=== PATIENT | female | born 1940 | race Two or more races ===

== ENCOUNTER 2024-12-05 03:51 | Inpatient (IN) | payer MEDICARE, BC ==
[2024-12-05] VITALS (10 sets, daily range): BP systolic 102–143; BP diastolic 45–73; PULSE 80–94; RESP 10–18; TEMP 97.4–97.8; O2SAT 92–99
[~2024-12-05] VITALS: Ht 157.5 cm; Wt 74.6 kg
--- NOTE | 2024-12-05 05:04 | ED.PDOC ---
Musculoskeletal HPI Comments 84 year old female presents to the ED via EMS with a chief complaint of RT hip pain s/p fall onset yesterday. Patient was transferred from [facility]. Patient has a RT hip fracture, needs surgery, needed security supervisor to clear her for surgery. Patient states she tripped, fell and landed on RT side. PMHx osteoporosis. Denies LOC, headache, dizziness,nausea, vomiting, diarrhea, chest pain, shortness of breath. No other symptoms or modifying factors present at this time. Chief Complaint: Lower Extremity Time Seen by MD: 04:50 Reviewed Notes: Medications, Allergies Allergies: Coded Allergies: Codeine (Verified Allergy, Unknown, 12/05/24) Information Source: Patient, Emergency Med Personnel Mode of Arrival: EMS Location: Right Extremity Location: Hip Timing: Days Prehospital treatment: None Severity: Moderate Able to Move Extremity: No Bear Weight: No Pain: Moderate Mechanism: Spontaneous Circumstances: Fall Onset of Symptoms: After Trauma Symptoms: Swelling, Pain DVT Risk Factors: NONE Associated signs and symptoms: Hip pain Past Medical History Past Medical History (Other): osteoperosis Surgical History: Pacemaker [employer]UM CONTINUOUS PROCESS History: No Pertinent [employer]UM CONTINUOUS PROCESS History Family History Family History: Reviewed,noncontributory to illness, No family hx of Cancer, No family hx of DM, No family hx of Heart stanley, No family hx of HTN, No family hx ofKidney stanley, No family hx of Liver stanley, No family hx of Lung stanley, No family hx of Stroke Social History Smoker: Non-Smoker Alcohol: Denies ETOH Use Drugs: Denies Drug Use Lives In: Home Constitutional: denies: chills, diaphoresis, fatigue, fever, malaise, sweats, weakness, others EENTM: denies: blurred vision, double vision, ear bleeding, ear discharge, ear drainage, ear pain, ear ringing, eye pain, eye redness, hearing loss, mouth pain, mouth swelling, nasal discharge, nose bleeding, nose congestion, nose pain, photophobia, tearing, throat pain, throat swelling, voice changes, others Respiratory: denies: cough, hemoptysis, orthopnea, SOB at rest, shortness of breath, SOB with excertion, stridor, wheezing, others Cardiovascular: denies: chest pain, dizzy spells, diaphoresis, Dyspnea on exertion, edema, irregular heart beat, left arm pain, lightheadedness, palpitations, PND, syncope, others Gastrointestinal: denies: abdomen distended, abdominal pain, blood streaked bowels, constipated, diarrhea, dysphagia, difficulty swallowing, hematemesis, melena, nausea, poor appetite, poor fluid intake, rectal bleeding, rectal pain, vomiting, others Genitourinary: denies: abnormal vagina bleeding, burning, dyspareunia, dysuria, flank pain, frequency, hematuria, incontinence, pain, , vagina discharge, urgency, others Neurological: denies: dizziness, fainting, headache, left sided numbness, left sided weakness, numbness, paresthesia, pre-existing deficit, right sided numbness, right sided weakness, seizure, speech problems, tingling, tremors, weakness, others Musculoskeletal: reports: others (RT hip pain); denies: back pain, gout, joint pain, joint swelling, muscle pain, muscle stiffness, neck pain Integumetry: denies: bruises, change in color, change in hair/nails, dryness, laceration, lesions, lumps, rash, wounds, others Allergic/Immunocompromised: denies: Difficulty Healing, Frequent Infections, Hives, Itching, others Hematologic/Lymphatic: denies: anemia, blood clots, easy bleeding, easy bruisin g, swollen glands, others Endocrine: denies: excessive hunger, excessive sweating, excessive thirst, excessive urination, flushing, intolerance to cold, intolerance to heat, unexplained weight gain, unexplained weight loss, others Psychiatric: denies: anxiety, bipolar disorder, depression, hopeless, panic disorder, schizophrenia, sleepless, suicidal, others All Other Systems: Reviewed and Negative Physical Exam General Appearance: No Apparent Distress, Normal HEENT: Normal ENT Inspection, Pharynx Normal, TMs Normal Neck: Full Range of Motion, Non-Tender, Normal, Normal Inspection Respiratory: Chest Non-Tender, Lungs Clear, No Accessory Muscle Use, No Respiratory Distress, Normal Breath Sounds Cardiovascular: No Edema, No JVD, No Murmur, No Gallop, Normal Peripheral Pulses, Regular Rate/Rhythm Breast Exam: Deferred Gastrointestinal: No Organomegaly, Non Tender, No Pulsatile Mass, Normal Bowel Sounds, Soft Genitalia: Deferred Pelvic: Deferred Rectal: Deferred Extremities: No calf tenderness, Normal capillary refill, Normal inspection, Normal range of motion, Non-tender, No pedal edema Musculoskeletal : Apperance: Normal Neurologic: Alert, 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 Was a procedure done?: No Differential Diagnosis EXT Differential Diagnosis: Compartment Syndrome, Fracture, Sprain, Dislocation, Laceration, DJD, Contusion, Other X-Ray, Labs, Meds, VS Vital Signs Date Time Temp Pulse Resp B/P (MAP) Pulse Ox O2 Delivery O2 Flow Rate FiO2 12/05/24 03:53 97.6 90 18 124/69 (87) 94 97.6 Lab Test 12/05/24 05:28 Range/Units White Blood Count Pending Red Blood Count Pending Hemoglobin Pending Hematocrit Pending Mean Corpuscular Volume Pending Mean Corpuscular Hemoglobin Pending Mean Corpuscular Hemoglobin Concent Pending Red Cell Distribution Width Pending Platelet Count Pending Mean Platelet Volume Pending Neutrophils (%) (Auto) Pending Lymphocytes (%) (Auto) Pending Monocytes (%) (Auto) Pending Basophils (%) (Auto) Pending Neutrophils # (Auto) Pending Lymphocytes # (Auto) Pending Monocytes # (Auto) Pending Prothrombin Time Pending Prothrombin Time INR Pending Activated Partial Thromboplast Time Pending Sodium Level Pending Potassium Level Pending Chloride Level Pending Carbon Dioxide Level Pending Anion Gap Pending Blood Urea Nitrogen Pending Creatinine Pending Glomerular Filtration Rate Calc Pending BUN/Creatinine Ratio Pending Serum Glucose Pending Calcium Level Pending Total Bilirubin Pending Aspartate Amino Transferase (AST) Pending Alanine Aminotransferase (ALT) Pending Alkaline Phosphatase Pending Total Protein Pending Albumin Pending Images Reviewed?: Images reviewed and evaluated by me Time of 1ST Reevaluation: 05:20 Reevaluation 1ST: Unchanged Patient Education/Counseling: Diagnosis, Treatment, Prognosis Family Education/Counseling: No Family Present Departure 1 Departure Time of Disposition: 05:52 Impression: Primary Impression: Closed right hip fracture Disposition: ADMITTED INPATIENT Condition: Guarded Discharged With: Self Comments Right Hip Pain After Fall Chief Complaint: Right hip pain after fall History of Present Illness: 84-year-old female presents to the Emergency Department with severe right hip pain following a ground-level trip and fall [facility] [employer] one day ago. Patient has been unable to bear weight since the fall. Initial X-rays at an outside facility suggested a right hip fracture. The patient was transferred to our facility for medical clearance by cardiology prior to orthopedic evaluation for possible hip surgery. On reevaluation, patient reports that her pain is currently controlled. 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 Problem List: 1. Right intertrochanteric hip fracture 2. Fall risk 3. Need for pre-operative cardiac clearance Differential Diagnosis: 1. Hip fracture 2. Hip contusion 3. Pelvic fracture 4. Soft tissue injury ED Course: Patient evaluated in ED, pre-operative workup initiated including labs, chest X-ray, and EKG. Orthopedic consultation and cardiology clearance pending. Pain adequately controlled. Assessment and Plan: 1. Right Intertrochanteric Hip Fracture: - Admission to orthopedic service pending - Awaiting cardiology clearance for surgery - Continue pain management as needed - DVT prophylaxis to be initiated per admitting team 2. Pre-operative Clearance: - Cardiology consultation requested - Pre-operative labs, chest X-ray, and EKG completed 3. Disposition: - Admit to hospital for surgical management - Orthopedic consultation Billing Information: ICD-10: S72.141A - Displaced intertrochanteric fracture of right femur, initial encounter for closed fracture ICD-10: W01.0XXA - Fall on same level from slipping, tripping and stumbling, initial encounter ICD-10: Z75.5 - [facility] relief care Critical Care Note Critical Care Time?: No Stability Stability form required: No Heart Score Heart Score: Heart Score Response (Comments) Value History N/A 0 EKG N/A 0 Age N/A 0 Risk Factors N/A 0 Troponin N/A 0 Total 0 I personally scribed for RADHA MURRAY MD ([email or web address]) on 12/05/24 at 05:04. Electronically submitted by Estephania Funez ([email or web address]). RADHA MURRAY MD Dec 05, 2024 05:04
[2024-12-05 06:12] LABS: Basophils # (auto) 0 10 ^3/uL (0-0.2); Basophils % (auto) 0.2 % (0.0-2.0); Eosinophils # (auto) 0 10 ^3/uL (0-0.8); Hemoglobin 13.9 g/dL (12.2-16.2); Lymphocytes # (auto) 1.1 10 ^3/uL (0.4-5.4); Lymphocytes % (auto) 9.3 % (10.0-50.0); Mean Corpuscular Hemoglobin 30.5 pg (28.0-32.0); Mean Corpuscular Volume 89.7 fL (80.0-100.0); Monocytes # (auto) 0.4 10 ^3/uL (0-1.3); Monocytes % (auto) 3.6 % (0.0-12.0); Neutrophils % (auto) 86.9 % (37.0-80.0); Nucleated Red Blood Cells % 0.1 %; Platelet Count (auto) 222 10^3/uL (140-450); Red Blood Cells 4.58 10^6/uL (4.0-5.20); Red Cell Distribution Width 13.4 % (11.8-14.3); White Blood Cell 11.5 10^3/uL (4.4-10.8)
[2024-12-05] MEDS ORDERED: ACETAMINOPHEN 325 MG TAB PO PRN (06:15)
--- NOTE | 2024-12-05 06:21 | DVH ---
CHEST RADIOGRAPH Indication: pre-op Technique: Single frontal view of the chest was obtained Comparison: None FINDINGS: Lines and Tubes: Dual-chamber pacemaker. Lungs: Bilateral interstitial prominence. No focal airspace disease. Pleura: No effusion. No pneumothorax. Cardiomediastinal contours: Cardiomegaly. Bones: Unremarkable IMPRESSION: 1. Pulmonary venous congestion. 2. Cardiomegaly.
--- NOTE | 2024-12-05 06:22 | DVH ---
PROCEDURE: Right hip radiographs. INDICATION: pain , fracture TECHNIQUE: Frontal views of the right hip were obtained. COMPARISON: Radiographs of the pelvis 12/04/2024. FINDINGS: Acute intertrochanteric right femoral neck fracture is noted. No dislocation. IMPRESSION: 1. Acute intertrochanteric right femoral neck fracture.
--- NOTE | 2024-12-05 06:45 | DVHHP2 ---
History of Present Illness Reason for Visit: Acute intertrochanteric right femoral neck fracture status post fall History of Present Illness Lesly Singh is a 84-year-old female with past medical history of osteoporosis, bilateral neuromas, right cataract surgery, and pacemaker placed on February 26, 2018 who presents to the ED with an acute intertrochanteric right femoral neck fracture status post fall. Patient reports that yesterday she was [place] [employer] when she had placed her belongings on a counter opened the door that was facing towards her, tripped and fell and landed on her right side. Patient reports that she does not use any DME and states that this is the 1st time falling. She states that she is extremely healthy and does not take any medications. Patient also reports that she lives alone. Patient denies any chest pain, shortness of breath, fever, chills, lightheadedness, weakness, dizziness, chest pain, shortness of breath, abdominal pain, nausea, vomiting, or diarrhea. Past Medical History Osteoporosis Bilateral neuromas Past Surgical History: Cataract Removal, Other (Pacemaker placed on February 26, 2018) Family History: Other (Both parents with heart disease) Smoke: No ALCOHOL: none Drugs: None Lives: Alone Domestic Violence: Neg Review of Systems Musculoskeletal: other (Right hip pain) Allergies: Coded Allergies: Codeine (Verified Allergy, Unknown, 12/05/24) Exam Vital Signs Vital Signs Date Time Temp Pulse Resp B/P (MAP) Pulse Ox O2 Delivery O2 Flow Rate FiO2 12/05/24 04:00 83 13 94 Room Air* 0 21 12/05/24 04:00 98.4 112/57 (75) 98.4 General Appearance: Alert, Oriented X3, Cooperative, No acute distress HEENT: Atraumatic, PERRLA, EOMI, Mucous membr. moist/pink Respiratory: Normal air movement Cardiovascular: Regular rate, Normal S1, Normal S2, No murmurs Abdominal: Normal bowel sounds, Soft, No tenderness, No hepatospenomegaly, No masses Extremities: No clubbing, No cyanosis, No edema, Normal pulses Skin: No significant lesion Neuro: Normal speech, Normal tone, Sensation intact Psych/Mental Status: Mental status NL, Mood NL Labs/Xrays Labs Test 12/05/24 06:19 12/05/24 05:28 Range/Units White Blood Count 11.5 H 4.4-10.8 10^3/uL Red Blood Count 4.58 4.0-5.20 10^6/uL Hemoglobin 13.9 12.2-16.2 g/dL Hematocrit 41.0 36.0-46.0 % Mean Corpuscular Volume 89.7 80.0-100.0 fL Mean Corpuscular Hemoglobin 30.5 28.0-32.0 pg Mean Corpuscular Hemoglobin Concent 34.0 32.0-36.0 g/dL Red Cell Distribution Width 13.4 11.8-14.3 % Platelet Count 222 140-450 10^3/uL Mean Platelet Volume 6.9 6.9-10.8 fL Neutrophils (%) (Auto) 86.9 H 37.0-80.0 % Lymphocytes (%) (Auto) 9.3 L 10.0-50.0 % Monocytes (%) (Auto) 3.6 0.0-12.0 % Eosinophils (%) (Auto) 0.0 0.0-7.0 % Basophils (%) (Auto) 0.2 0.0-2.0 % Neutrophils # (Auto) 10.0 H 1.6-8.6 10 ^3/uL Lymphocytes # (Auto) 1.1 0.4-5.4 10 ^3/uL Monocytes # (Auto) 0.4 0-1.3 10 ^3/uL Eosinophils # (Auto) 0 0-0.8 10 ^3/uL Basophils # (Auto) 0 0-0.2 10 ^3/uL Nucleated Red Blood Cells 0.1 % PROCEDURE: Right hip radiographs. INDICATION: pain , fracture TECHNIQUE: Frontal views of the right hip were obtained. COMPARISON: Radiographs of the pelvis 12/04/2024. FINDINGS: Acute intertrochanteric right femoral neck fracture is noted. No d islocation. IMPRESSION: 1. Acute intertrochanteric right femoral neck fracture. CHEST RADIOGRAPH Indication: pre-op Technique: Single frontal view of the chest was obtained Comparison: None FINDINGS: Lines and Tubes: Dual-chamber pacemaker. Lungs: Bilateral interstitial prominence. No focal airspace disease. Pleura: No effusion. No pneumothorax. Cardiomediastinal contours: Cardiomegaly. Bones: Unremarkable IMPRESSION: 1. Pulmonary venous congestion. 2. Cardiomegaly. Assessment/Plan Assessment/Plan Assessment Acute intertrochanteric right femoral neck fracture status post fall Leukocytosis probable secondary to fall Pulmonary vascular congestion probable due to pulmonary edema versus heart failure versus acute bronchitis versus pneumonia versus other etiology History of pacemaker History of osteoporosis History of bilateral neuromas History of right cataract surgery Plan Admit to [facility] Pain management Antiemetics CT right hip noted X-ray right hip noted Chest x-ray noted EKG PT/PTT IV fluids NPO for now Empiric IV antibiotics-ceftriaxone Per patient she does not take any home medications DVT prophylaxis-Lovenox PUD prophylaxis-not indicated no history of GERD or GI bleed Discussed plan of care with patient and nurse Ortho consult Cardiology consult for risk stratification score Echo ordered Plan discussed with: Patient My Orders Orders - KATH LUCIO Procedure Category Date Status Time Admit ADMIT 12/05/24 Transmitted 06:15 Allergies JOURDAN 12/05/24 Transmitted 06:15 Code Status CODE 12/05/24 Transmitted 06:15 0.9% Ns 1000 Ml PHA 12/05/24 Transmitted 06:15 Hydrocodone-Acet PHA 12/05/24 Transmitted 5/325mg Tab (Belt 06:15 Ondansetron Hcl PHA 12/05/24 Transmitted (Zofran) 06:15 Enoxaparin Sodium PHA 12/05/24 Transmitted (Lovenox) 10:00 Complete Blood Count LAB 12/06/24 Verified 04:00 Comprehensive LAB 12/06/24 Verified Metabolic Panel 04:00 Npo (Nothing By DIET 12/05/24 Transmitted Mouth) Diet Breakfast Acetaminophen Tablet PHA 12/05/24 Transmitted (Tylenol Tablet) 06:15 Date of Service: Dec 05, 2024 Billing Provider: KATH LUCIO Common Visit Codes: [id number] INP/OBS CARE (HIGH) KATH LUCIO Dec 05, 2024 06:45
--- NOTE | 2024-12-05 06:52 | DVH ---
CLINICAL INDICATION: 84 years old, Female; pain , possible hip fracture. TECHNIQUE: Noncontrast CT of the right hip was performed. Sagittal and coronal reformatted images are provided. COMPARISON: None CT Dose: CTDI volume is 11.4 mGy. Dose-length product is 309.8 mGy*cm FINDINGS: Acute comminuted intertrochanteric right femoral neck fracture. No dislocation. Soft tiss ue swelling about the right hip. IMPRESSION: 1. Acute comminuted intertrochanteric right femoral neck fracture. All CT scans at this medical facility are performed using dose modulation techniques as appropriate t o a performed exam including the following: Automated exposure control was utilized; adjustment of th e MA and/or KV according to patient size; and use of iterative reconstruction technique.
[2024-12-05 07:06] LABS: INR 1.02 (0.9-1.15); Partial Thromboplastin Time 24.2 SEC (24.5-34.5); Prothrombin Time 10.8 sec (9.3-11.8)
[2024-12-05 07:29] LABS: Anion Gap 11 (5-15)
[2024-12-05 07:40] LABS: Alanine Aminotransferase 38 U/L (7-40); Albumin 4.3 g/dL (3.2-4.8); Alkaline Phosphatase 95 U/L (46-116); Aspartate Aminotransferase 34 U/L (13-40); BUN/Creatinine Ratio 13.8 (10.0-20.0); Bilirubin, Total 0.6 mg/dL (0.2-1.0); Blood Urea Nitrogen 13 mg/dL (9-23); Calcium 9.5 mg/dL (8.7-10.4); Carbon Dioxide 24 mmol/L (20-31); Chloride 105 mmol/L (98-107); Glucose 148 mg/dL (74-106); Potassium 4.1 mmol/L (3.5-5.1); Sodium 140 mmol/L (136-145)
[2024-12-05] MEDS: SODIUM CHLORIDE 0.9% 1,000 ML IV SCH (08:18)
[2024-12-05] MEDS: cefTRIAXone 1GM/50ML D5W 50 ML IV SCH (09:14)
--- NOTE | 2024-12-05 09:49 | DVHINCON2 ---
LISBET DHALIWAL [facility] 12/05/24 0949: Date Seen: Dec 05, 2024 Referring Physician ZENAIDA Alejo Reason for Consultation Cardiac risk stratification History of Present Illness This is an 84-year-old female patient who presents to [facility] emergency room status post mechanical fall. The patient reports that she was at a [place] putting her belongings away and somehow tripped, landing on her right side. She reports immediate pain to her right hip. She was originally taken to [facility] and transferred to this facility for higher level of care. She was found to have an acute comminuted intertrochanteric right femoral neck fracture. Cardiology is being consulted at this time for cardiac risk stratification pending orthopedic intervention. Initial twelve lead electrocardiogram reveals ventricular paced rhythm. The patient denies any cardiac symptoms. 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 Past Medical History Past medical history reviewed. No other significant than mentioned above. Past Surgical History Permanent pacemaker implantation in 2018 Right cataract removal Family History: Cardiovascular disease G8 MOTHER, G8 FATHER, Family History Family history reviewed. Social History Denies the use of tobacco, alcohol or illicit drugs. Allergies: Coded Allergies: Codeine (Verified Allergy, Unknown, 12/05/24) Home Meds No Active Prescriptions or Reported Meds Home Meds Patient denies taking any prescribed medications Current Medications Current Medications Medications (Trade) Dose Ordered Sig/Holly Route PRN Reason Start Time Stop Time Status Last Admin Sodium Chloride 1,000 ml @ 70 mls/hr [id number] IV 12/05/24 06:15 12/05/24 08:18 Acetaminophen/ Hydrocodone Bitart ([place] 5/325MG Tab) 1 tab Q4HP PRN PO MODERATE PAIN (4-6 PAIN SCALE) 12/05/24 06:15 Ondansetron HCl (Zofran) 4 mg Q4HP PRN IV NAUSEA / VOMITING 12/05/24 06:15 Enoxaparin Sodium (Lovenox) 40 mg DAILY SC 12/05/24 10:00 Acetaminophen (Tylenol Tablet) 650 mg Q6HP PRN PO PAIN SCALE 1-3 OR TEMP>100.4 12/05/24 06:15 Ceftriaxone Sodium 50 ml @ 100 mls/hr DAILY@09 IV 12/05/24 09:00 12/05/24 09:14 Review of Systems Constitutional: No symptom reported Ears, Nose, & Throat: No symptom reported Eyes: No symptom reported Neurological: No symptoms reported Pulmonary/Respiratory: No symptoms reported Cardiovascular: No symptom reported Gastrointestinal: No symptom reported Genitourinary: No symptom reported Musculoskeletal: Right hip pain Skin: No symptom reported Psychiatric: No symptom reported Endocrine: No symptom reported Hematologic/Lymphatic: No symptom reported Vital Signs Vital Signs Date Time Temp Pulse Resp B/P (MAP) Pulse Ox O2 Delivery O2 Flow Rate FiO2 12/05/24 08:44 82 10 96 Nasal Cannula* 2 28 12/05/24 08:39 97.1 131/46 (74) 97.1 Physical Exam General Appearance: Cooperative. Well-developed. Well-nourished. No acute distress. Pulmonary/Respiratory: Clear, bilateral breaths sounds. Cardiovascular/Chest: Regular rate and rhythm. Peripheral Pulses: 2+ Radial (R). 2+ Radial (L). 2+ Pedal (R). 2+ Pedal (L) Abdominal Exam: Normal bowel sounds. Ankle Exam: Negative ankle edema Lower extremities: Negative lower extremity edema Neuro/Mental Status: A/OX4, coherent. Thoughts/Psych: Normal thought pattern. Appropriate mood and affect. Good judgment and insight. Appearance: No acute distress. Skin Exam: Normal inspection. Normal color. Warm and dry. Labs/Diagnostic Data Labs Test 12/05/24 06:43 12/05/24 05:28 Range/Units Sodium Level 140 136-145 mmol/L Potassium Level 4.1 3.5-5.1 mmol/L Chloride Level 105 98-107 mmol/L Carbon Dioxide Level 24 20-31 mmol/L Anion Gap 11 5-15 Blood Urea Nitrogen 13 9-23 mg/dL Creatinine 0.94 0.550-1.02 mg/dL Glomerular Filtration Rate Calc 60 >90 mL/min BUN/Creatinine Ratio 13.8 10.0-20.0 Serum Glucose 148 H 74-106 mg/dL Calcium Level 9.5 8.7-10.4 mg/dL Total Bilirubin 0.6 0.2-1.0 mg/dL Aspartate Amino Transferase (AST) 34 13-40 U/L Alanine Aminotransferase (ALT) 38 7-40 U/L Alkaline Phosphatase 95 46-116 U/L Total Protein 7.0 5.7-8.2 g/dL Albumin 4.3 3.2-4.8 g/dL White Blood Count 11.5 H 4.4-10.8 10^3/uL Red Blood Count 4.58 4.0-5.20 10^6/uL Hemoglobin 13.9 12.2-16.2 g/dL Hematocrit 41.0 36.0-46.0 % Mean Corpuscular Volume 89.7 80.0-100.0 fL Mean Corpuscular Hemoglobin 30.5 28.0-32.0 pg Mean Corpuscular Hemoglobin Concent 34.0 32.0-36.0 g/dL Red Cell Distribution Width 13.4 11.8-14.3 % Platelet Count 222 140-450 10^3/uL Mean Platelet Volume 6.9 6.9-10.8 fL Neutrophils (%) (Auto) 86.9 H 37.0-80.0 % Lymphocytes (%) (Auto) 9.3 L 10.0-50.0 % Monocytes (%) (Auto) 3.6 0.0-12.0 % Eosinophils (%) (Auto) 0.0 0.0-7.0 % Basophils (%) (Auto) 0.2 0.0-2.0 % Neutrophils # (Auto) 10.0 H 1.6-8.6 10 ^3/uL Lymphocytes # (Auto) 1.1 0.4-5.4 10 ^3/uL Monocytes # (Auto) 0.4 0-1.3 10 ^3/uL Eosinophils # (Auto) 0 0-0.8 10 ^3/uL Basophils # (Auto) 0 0-0.2 10 ^3/uL Nucleated Red Blood Cells 0.1 % Prothrombin Time 10.8 9.3-11.8 sec Prothrombin Time INR 1.02 0.9-1.15 Activated Partial Thromboplast Time 24.2 L 24.5-34.5 SEC Assessment Preprocedural cardiovascular examination Presence of permanent pacemaker (Medtronic) Acute intertrochanteric right femoral neck fracture Osteoporosis Plan/Recommendation We will continue with the following plan/recommendations (Dr. Andrade): Transthoracic echocardiogram reveals EF of 55-60%. Revised cardiac risk index (Amado criteria): 1 point (6.0% risk of major cardiac event). The patient has no previous underlying history of congestive heart failure, coronary artery disease, or equivalent of cardiac symptoms. Prior to emergency room arrival, the patient reports a good functional capacity. Per Cardiology standpoint, the patient is at an acceptable risk for moderate risk surgery. There is no additional cardiac workup indicated prior to surgery. Thank you for allowing us to care for this patient. Please call with any questions or concerns. Critical care time spent: 43 minutes This medical document was created using an electronic medical record system with voice recognition software and computerized dictation system. Although this document has been carefully reviewed, there might still be some phonetic and typographical errors. Occasional wrong-word or ``sound-alike substitutions may have occurred due to the inherent limitations of voice recognition software. These areas are purely typographical due to imperfections of the software programs and do not reflect any compromise in the patient's medical care. Please read the chart carefully and recognize, using context, where these substitutions have occurred. Plan discussed with: Patient NYHA Physical activity limitations: NA Date of Service: Dec 05, 2024 Billing Provider: LISBET DHALIWAL Cardiology Common Codes: [id number] INP/OBS CARE (High) Cardiology Consultation Codes: [id number] CONSULT <45MIN WILLIAM ANDRADE DO 12/05/24 2329: Date Seen: Dec 05, 2024 Family History: Cardiovascular disease G8 MOTHER, G8 FATHER, Allergies: Coded Allergies: Codeine (Verified Allergy, Unknown, 12/05/24) Home Meds No Active Prescriptions or Reported Meds Plan/Recommendation The patient was discussed, seen, and examined with Lisbet Dhaliwal NP. I agree with her Assessment and Plan, which was formulated with me. Plan discussed with: Patient Date of Service: Dec 05, 2024 Billing Provider: WILLIAM ANDRADE DO Cardiology Common Codes: [id number] INP/OBS CARE (High) LISBET DHALIWAL Dec 05, 2024 09:49 WILLIAM ANDRADE DO Dec 05, 2024 23:29
[2024-12-05] MEDS: ENOXAPARIN SOD 40 MG/0.4 ML SYRINGE SC SCH (10:00)
--- NOTE | 2024-12-05 10:40 | DVHPN2 ---
Reviewed: Care Plan, H&P, Labs, Medications, Previous Orders, Radiology Changes from previous H/P or p: No Changes Musculoskeletal: other (Right hip pain) Objective Vitals Vital Signs Date Time Temp Pulse Resp B/P (MAP) Pulse Ox O2 Delivery O2 Flow Rate FiO2 12/05/24 09:51 85 12/05/24 08:44 10 96 Nasal Cannula* 2 28 12/05/24 08:39 97.1 131/46 (74) 97.1 Medications Current Medications Medications Dose Ordered Sig/Holly Route Start Time Stop Time Status Last Admin Dose Admin Sodium Chloride 1,000 ml @ 70 mls/hr [id number] IV 12/05/24 06:15 12/05/24 08:18 70 MLS/HR Acetaminophen/ Hydrocodone Bitart 1 tab Q4HP PRN PO 12/05/24 06:15 Ondansetron HCl 4 mg Q4HP PRN IV 12/05/24 06:15 Enoxaparin Sodium 40 mg DAILY SC 12/05/24 10:00 Acetaminophen 650 mg Q6HP PRN PO 12/05/24 06:15 Ceftriaxone Sodium 50 ml @ 100 mls/hr DAILY@09 IV 12/05/24 09:00 12/05/24 09:14 100 MLS/HR Laboratory Results Laboratory Tests 12/05/24 05:28 12/05/24 06:43 Chemistry Test 12/05/24 06:43 Albumin 4.3 g/dL (3.2-4.8) Calcium Level 9.5 mg/dL (8.7-10.4) Total Protein 7.0 g/dL (5.7-8.2) Coagulation Test 12/05/24 05:28 Prothrombin Time 10.8 sec (9.3-11.8) Prothrombin Time INR 1.02 (0.9-1.15) Activated Partial Thromboplast Time 24.2 SEC (24.5-34.5) L LFT Test 12/05/24 06:43 Alanine Aminotransferase (ALT) 38 U/L (7-40) Alkaline Phosphatase 95 U/L (46-116) Aspartate Amino Transferase (AST) 34 U/L (13-40) Total Bilirubin 0.6 mg/dL (0.2-1.0) Labs and/or images reviewed: Labs reviewed by me, Image(s) reviewed by me Assessment/Plan Assessment/Plan Transmitted from [facility] Acute right intertrochanteric fracture: Pain management consult for History of pacemaker Osteoporosis Awaiting cardiology clearance : Cardiology consult by Dr Andrade appreciated Echocardiogram pending Plan discussed with: Patient My Orders Orders - ALYCE YOUNG MD Procedure Category Date Status Time * Orthopedic Consult CONS 12/05/24 Verified 10:35 Date of Service: Dec 05, 2024 Billing Provider: ALYCE YOUNG MD Common Visit Codes: [id number] INP/OBS CARE(HIGH) ALYCE YOUNG MD Dec 05, 2024 10:40
[2024-12-05] MEDS: ONDANSETRON HCL 4 MG/2 ML VIAL IV PRN (10:56)
[2024-12-05] MEDS: MORPHINE SULFATE INJ 2 MG/ml SYRG IV PRN (10:57)
--- NOTE | 2024-12-05 13:11 | DVHSR ---
APPROVED REPORT EXAM: Two-dimensional and M-mode echocardiogram with Doppler and color Doppler. Blood Pressure: 108/45 mmHg INDICATION Pre-Op Risk stratification score RISK FACTORS Height: 62, Weight: 137 DIMENSIONS LVDd (3.8-5.7cm)LA (2D)3.9 (1.9-4.0cm)Aortic Root3.3 (2.0-3.7cm) LVDs (2.5-4.0cm)LA (MM) (1.9-4.0cm)Aortic Cusp Exc1.6 (1.5-2.0cm) EF (%) 65.0 (55-70%)Rt. Atrium4.0 (1.9-4.0cm)Asc. Aorta cm Mitral Valve MitralMitral Stenosis E wave1.47m/sMV Mean GR.mmHg A wavem/sMV Peak GR.77mmHg E/A ratio0.02D MVAcm2 Aortic Valve Aortic ValveAortic Stenosis V10.94m/Maru Mean GR.5mmHg V21.59m/Maru Peak GR.10mmHg LVOT Diameter2.0 (1.8-2.4cm)Doppler AVA1.86cm2 AI P 1/2 Jdvq475.26ms Tricuspid Valve TR Velocity2.26m/s [id number] Other Information Quality : Technically LimitedRhythm : Conclusion LVEF normal at 55-60% RV function normal. Device lead present Aortic valve is not well visualized, no significant stenosis by gradient
[2024-12-05] MEDS: CELECOXIB 100 MG CAP ONE (13:33)
[2024-12-05] MEDS: ACETAMINOPHEN IV 100 ML IV ONE (13:34)
[2024-12-05] MEDS: GABAPENTIN 300 MG CAP ONE (13:34)
[2024-12-05] MEDS ORDERED: PROPOFOL 10 MG/ML 20 ML IV ONE ×2 (13:37→14:20)
[2024-12-05] MEDS ORDERED: DexAMETHasone SOD PHOS 10MG/1ML VIAL INJ ONE ×2 (13:37→13:39)
[2024-12-05] MEDS ORDERED: ONDANSETRON HCL 4 MG/2 ML VIAL ONE (13:37)
[2024-12-05] MEDS ORDERED: LIDOCAINE 2% (LOCAL ANESTH.) PF 5ml SDV ONE (13:37)
[2024-12-05] MEDS ORDERED: KETOROLAC TROMETH 30 MG/ML 1ML VIAL ONE (13:37)
[2024-12-05] MEDS ORDERED: GLYCOPYRROLATE 0.2 MG/ML 1ML VIAL ONE (13:37)
[2024-12-05] MEDS ORDERED: EPINEPHrine HCL 1 MG/1 ML AMP ONE (13:39)
--- NOTE | 2024-12-05 13:43 | DVHINCON2 ---
Date of service: Dec 05, 2024 Reason for Consultation Right hip fracture History of Present Illness 84 yo F with right hip pain after a mechanical fall -- could not bear weight after this; pain with motion at hip; no cp/sob/abd pain/nausea/vomiting. Past Medical History Pacemaker, HTN Family History: Cardiovascular disease G8 MOTHER, G8 FATHER, Allergies: Coded Allergies: Codeine (Verified Allergy, Unknown, 12/05/24) Home Meds No Active Prescriptions or Reported Meds Current Medications Current Medications Medications (Trade) Dose Ordered Sig/Holly Route PRN Reason Start Time Stop Time Status Last Admin Sodium Chloride 1,000 ml @ 70 mls/hr [id number] IV 12/05/24 06:15 12/05/24 08:18 Acetaminophen/ Hydrocodone Bitart ([place] 5/325MG Tab) 1 tab Q4HP PRN PO MODERATE PAIN (4-6 PAIN SCALE) 12/05/24 06:15 Hold Ondansetron HCl (Zofran) 4 mg Q4HP PRN IV NAUSEA / VOMITING 12/05/24 06:15 12/05/24 10:56 Enoxaparin Sodium (Lovenox) 40 mg DAILY SC 12/05/24 10:00 Acetaminophen (Tylenol Tablet) 650 mg Q6HP PRN PO PAIN SCALE 1-3 OR TEMP>100.4 12/05/24 06:15 Ceftriaxone Sodium 50 ml @ 100 mls/hr DAILY@09 IV 12/05/24 09:00 12/05/24 09:14 Morphine Sulfate 2 mg Q4HPRN PRN IV MODERATE PAIN (4-6 PAIN SCALE) 12/05/24 10:45 12/05/24 10:57 Review of Systems 10 point ROS is neg except per HPI Vital Signs Vital Signs Date Time Temp Pulse Resp B/P (MAP) Pulse Ox O2 Delivery O2 Flow Rate FiO2 12/05/24 12:58 97.8 82 17 140/62 (88) 98 97.8 12/05/24 08:44 Nasal Cannula* 2 28 Physical Exam NAD RLE: short ext rotated +TA/gS/ehl/fhl FOOT WWP Labs/Diagnostic Data Labs Test 12/05/24 06:43 12/05/24 05:28 Range/Units Sodium Level 140 136-145 mmol/L Potassium Level 4.1 3.5-5.1 mmol/L Chloride Level 105 98-107 mmol/L Carbon Dioxide Level 24 20-31 mmol/L Anion Gap 11 5-15 Blood Urea Nitrogen 13 9-23 mg/dL Creatinine 0.94 0.550-1.02 mg/dL Glomerular Filtration Rate Calc 60 >90 mL/min BUN/Creatinine Ratio 13.8 10.0-20.0 Serum Glucose 148 H 74-106 mg/dL Calcium Level 9.5 8.7-10.4 mg/dL Total Bilirubin 0.6 0.2-1.0 mg/dL Aspartate Amino Transferase (AST) 34 13-40 U/L Alanine Aminotransferase (ALT) 38 7-40 U/L Alkaline Phosphatase 95 46-116 U/L Total Protein 7.0 5.7-8.2 g/dL Albumin 4.3 3.2-4.8 g/dL White Blood Count 11.5 H 4.4-10.8 10^3/uL Red Blood Count 4.58 4.0-5.20 10^6/uL Hemoglobin 13.9 12.2-16.2 g/dL Hematocrit 41.0 36.0-46.0 % Mean Corpuscular Volume 89.7 80.0-100.0 fL Mean Corpuscular Hemoglobin 30.5 28.0-32.0 pg Mean Corpuscular Hemoglobin Concent 34.0 32.0-36.0 g/dL Red Cell Distribution Width 13.4 11.8-14.3 % Platelet Count 222 140-450 10^3/uL Mean Platelet Volume 6.9 6.9-10.8 fL Neutrophils (%) (Auto) 86.9 H 37.0-80.0 % Lymphocytes (%) (Auto) 9.3 L 10.0-50.0 % Monocytes (%) (Auto) 3.6 0.0-12.0 % Eosinophils (%) (Auto) 0.0 0.0-7.0 % Basophils (%) (Auto) 0.2 0.0-2.0 % Neutrophils # (Auto) 10.0 H 1.6-8.6 10 ^3/uL Lymphocytes # (Auto) 1.1 0.4-5.4 10 ^3/uL Monocytes # (Auto) 0.4 0-1.3 10 ^3/uL Eosinophils # (Auto) 0 0-0.8 10 ^3/uL Basophils # (Auto) 0 0-0.2 10 ^3/uL Nucleated Red Blood Cells 0.1 % Prothrombin Time 10.8 9.3-11.8 sec Prothrombin Time INR 1.02 0.9-1.15 Activated Partial Thromboplast Time 24.2 L 24.5-34.5 SEC Plan/Recommendation 84 yo F with comminuted right hip intertrochanteric fracture 1. I had a long and thorough discussion with patient regarding her condition. Risks benefits options and alternatives reviewed in depth. Risks include but not exclusive to bleeding, infection, nerve injury,hardware failure, nonunion, malunion, chronic pain, blood clots, cardiac and pulmonary complications, amputation and . Patient understands the risks and wishes to proceed with surgery. Patient understands the morbidity and mortality of hip fractures in the elderly. 2. Plan for open reduction internal fixation of right hip fracture 3. NPO/iVF Plan discussed with: Patient BLADE BLOUNT MD Dec 05, 2024 13:43
[2024-12-05] MEDS: CELECOXIB 100 MG CAP PO ONE (13:46)
[2024-12-05] MEDS: ACETAMINOPHEN IV 1000 MG/100ML (10MG/ML) IV ONE (13:46)
[2024-12-05] MEDS: GABAPENTIN 300 MG CAP PO ONE (13:47)
--- NOTE | 2024-12-05 13:48 | DVHOP2 ---
Operative Report - 2 Report Details Date: 12/05/24 Preop Diagnosis: Right hip intertrochanteric fracture Postop Diagnosis: Right hip intertrochanteric fracture Surgeon: Eddy Florian MD Anesthesiologist: Cas NETTLES Anesthesia: Regional Implant: ITS Short troch nail lag screw, set screw distal locking screw Consent: The patient was informed of the risks and benefits of the procedure. These include but are not limited to complications of anesthesia, postoperative infection, incomplete relief of symptoms, recurrence of symptoms, damage to blood vessels, nerves and tendons, deep venous thrombosis, pulmonary embolism and possible need for repeat surgery in the future. Estimated Blood Loss: 100 cc Indications for Surgery: displaced and comminuted right hip fracture Name of Procedure Performed open reduction internal fixation of right hip intertrochanteric fracture, intrao p fluoro Procedure Details Procedure Details: FINDINGS: IT fracture, reduced on the fracture table. DESCRIPTION OF PROCEDURE: In the preoperative holding area, the consent was reviewed and the appropriate extremity was verified by the patient and marked with my initials. The patient was then transferred to the operating theatre. Patient was placed on a fracture table. Appropriate anesthetia was induced. All bony prominences were well padded. A time out was performed verifying the side and site of surgery according to standard protocol. Preoperative antibiotics were given. The extremity was then prepped and draped in the usual sterile fashion. Using c-arm, the fracture was reduced using the fracture table and a combination of maneuvers including traction, internal rotation, and flexion. An incision was made over the greater trochanter confirming correct position with c-arm. A guide wire was drilled into the tip of the greater trochanter, centered A to P. We used the starting reamer to gain entry to the femoral canal. A short nail was then placed. A guide pin was then drilled in the center of the femoral head confirmed using fluoroscopy. We measured the screw lengths. Using a cannulated drill, we drilled the lateral cortex. The screws were then introduced. Once positioned, we once again confirmed that the screws were with the femoral head. Cerament injected into fracture site Attention was turned distally. We used the targeting device to drill through the nail and the femur. This was measured using the device, and the screw was placed with good purchase. Final xrays were taken showing the hardware in perfect position. The wound was copiously irrigated. No fractures were seen on the re st of the femur. The fascia was closed with #1 Vicryl, the skin closed #2-0 Vicryl, and cristal. A dry sterile dressing was placed on the patient. The patient was transferred to the recovery room in stable condition. Condition Good Disposition Still a Patient EDDY FLORIAN MD Dec 05, 2024 13:48
[2024-12-05] MEDS: ceFAZolin 1GM VL ONE (14:32)
[2024-12-05] MEDS ORDERED: HYDROmorphone HCL 2 MG/ML VL/or syr IV PRN (15:15)
--- NOTE | 2024-12-05 15:42 | DVH ---
EXAM: XY C ARM FLUOROSCOPY UP TO 60MIN, XY R HIP COMPLETE XRAY HISTORY: RIGHT HIP TROCH NAIL TECHNIQUE: Intraoperative radiographs of the right hip were obtained. FLUOROSCOPY TIME: 63.8 seconds FLUOROSCOPY IMAGES: 3 TOTAL DOSE: 5.78 mGy COMPARISON: None FINDINGS/IMPRESSION: Refer to intraoperative report for further evaluation.
[2024-12-05] MEDS: ONDANSETRON HCL 4 MG/2 ML VIAL IV ONE (16:38)
[2024-12-05] MEDS: ROPIVACAINE 0.5% (5MG/ML) 20ML AMPULE IJ ONE (16:38)
--- NOTE | 2024-12-05 18:53 | ECG ---
[facility] Test Date: 2024-12-05 Test Time: 09:49:32 Pat Name: MIREILLE HOLMAN Department: ED Room: 0272 A Gender: F Final [employer]ig[employer] Examiner: LUKAS : 1940 Requested By: RADHA MURRAY Order Number: [id number] Reading MD: Jose Moseley Measurements Intervals [place] Rate: 85 P: 0 RI: 58 QRS: -75 QRSD: 154 T: 77 QT: 422 QTc: 502 Interpretive Statements Ventricular-paced rhythm No further analysis attempted due to paced rhythm Electronically Signed On 12-08-2024 20:22:26 PDT by Jose Moseley Please click the below link to view image of tracing.
[2024-12-06] VITALS (8 sets, daily range): BP systolic 105–124; BP diastolic 45–74; PULSE 71–87; RESP 16–18; TEMP 97.3–98.4; O2SAT 93–97
[2024-12-06 06:58] LABS: Basophils # (auto) 0 10 ^3/uL (0-0.2); Eosinophils # (auto) 0 10 ^3/uL (0-0.8); Hematocrit 32.8 % (36.0-46.0); Hemoglobin 11.2 g/dL (12.2-16.2); Lymphocytes # (auto) 1.2 10 ^3/uL (0.4-5.4); Lymphocytes % (auto) 11.4 % (10.0-50.0); Mean Corpuscular Hemoglobin 30.9 pg (28.0-32.0); Mean Corpuscular Hgb Conc. 34.2 g/dL (32.0-36.0); Mean Corpuscular Volume 90.3 fL (80.0-100.0); Monocytes # (auto) 0.7 10 ^3/uL (0-1.3); Monocytes % (auto) 6.4 % (0.0-12.0); Neutrophils # (auto) 8.6 10 ^3/uL (1.6-8.6); Neutrophils % (auto) 82.2 % (37.0-80.0); Platelet Count (auto) 186 10^3/uL (140-450); Red Blood Cells 3.63 10^6/uL (4.0-5.20); Red Cell Distribution Width 13.5 % (11.8-14.3); White Blood Cell 10.4 10^3/uL (4.4-10.8)
[2024-12-06 07:01] LABS: Alanine Aminotransferase 25 U/L (7-40); Alkaline Phosphatase 68 U/L (46-116); Anion Gap 9 (5-15); BUN/Creatinine Ratio 17.3 (10.0-20.0); Blood Urea Nitrogen 17 mg/dL (9-23); Calcium 9.2 mg/dL (8.7-10.4); Carbon Dioxide 22 mmol/L (20-31); Chloride 107 mmol/L (98-107); Potassium 4.5 mmol/L (3.5-5.1); Sodium 138 mmol/L (136-145); Total Protein 5.9 g/dL (5.7-8.2)
[2024-12-06 07:02] LABS: Albumin 3.6 g/dL (3.2-4.8); Aspartate Aminotransferase 28 U/L (13-40); Bilirubin, Total 0.7 mg/dL (0.2-1.0)
[2024-12-06 07:36] LABS: Glucose 122 mg/dL (74-106)
--- NOTE | 2024-12-06 10:00 | DVHPN2 ---
Reviewed: Care Plan, H&P, Labs, Medications, Previous Orders, Radiology Changes from previous H/P or p: No Changes Musculoskeletal: other (Right hip pain) Objective Vitals Vital Signs Date Time Temp Pulse Resp B/P (MAP) Pulse Ox O2 Delivery O2 Flow Rate FiO2 12/06/24 08:00 95 Nasal Cannula* 2 28 12/06/24 05:00 97.6 71 18 119/74 (89) 97.6 Intake/Output Intake and Output 12/06/24 07:00 Intake Total 300 ml Output Total 900 ml Balance -600 ml Intake Oral 200 ml IV Total 100 ml Output Urine Total 900 ml # Voids 1 Medications Current Medications Medications Dose Ordered Sig/Holly Route Start Time Stop Time Status Last Admin Dose Admin Sodium Chloride 1,000 ml @ 70 mls/hr [id number] IV 12/05/24 06:15 12/05/24 08:18 70 MLS/HR Acetaminophen/ Hydrocodone Bitart 1 tab Q4HP PRN PO 12/05/24 06:15 Hold Ondansetron HCl 4 mg Q4HP PRN IV 12/05/24 06:15 12/05/24 10:56 4 MG Enoxaparin Sodium 40 mg DAILY SC 12/05/24 10:00 12/06/24 08:36 40 MG Acetaminophen 650 mg Q6HP PRN PO 12/05/24 06:15 Ceftriaxone Sodium 50 ml @ 100 mls/hr DAILY@09 IV 12/05/24 09:00 12/06/24 08:36 100 MLS/HR Morphine Sulfate 2 mg Q4HPRN PRN IV 12/05/24 10:45 12/05/24 10:57 2 MG Laboratory Results Laboratory Tests 12/06/24 05:05 Chemistry Test 12/06/24 05:05 Albumin 3.6 g/dL (3.2-4.8) Calcium Level 9.2 mg/dL (8.7-10.4) Total Protein 5.9 g/dL (5.7-8.2) LFT Test 12/06/24 05:05 Alanine Aminotransferase (ALT) 25 U/L (7-40) Alkaline Phosphatase 68 U/L (46-116) Aspartate Amino Transferase (AST) 28 U/L (13-40) Total Bilirubin 0.7 mg/dL (0.2-1.0) Labs and/or images reviewed: Labs reviewed by me, Image(s) reviewed by me Assessment/Plan Assessment/Plan Transmitted from [facility] Acute right intertrochanteric fracture: Status post open reduction internal fixation of right hip intertrochanteric fracture, by Dr Florian on 12-05-24 History of pacemaker Osteoporosis Echocardiogram 55 % ejection fraction Physical therapy ordered Plan discussed with: Patient My Orders Orders - ALYCE YOUNG MD Procedure Category Date Status Time * Orthopedic Consult CONS 12/05/24 Transmitted 10:35 Morphine Sulfate PHA 12/05/24 In Process Injection 10:45 Date of Service: Dec 06, 2024 Billing Provider: ALYCE YOUNG MD Common Visit Codes: [id number] INP/OBS CARE(HIGH) ALYCE YOUNG MD Dec 06, 2024 10:00
[2024-12-07 01:00] VITALS: BP 113/45; PULSE 84; RESP 19; TEMP 98.1; O2SAT 93
[2024-12-07 05:00] VITALS: BP 115/60; PULSE 83; RESP 19; TEMP 97.7; O2SAT 94
[2024-12-07 05:48] LABS: Basophils # (auto) 0 10 ^3/uL (0-0.2); Basophils % (auto) 0.2 % (0.0-2.0); Eosinophils # (auto) 0 10 ^3/uL (0-0.8); Eosinophils % (auto) 0.4 % (0.0-7.0); Hematocrit 31.6 % (36.0-46.0); Hemoglobin 10.7 g/dL (12.2-16.2); Lymphocytes # (auto) 2.6 10 ^3/uL (0.4-5.4); Lymphocytes % (auto) 24.6 % (10.0-50.0); Mean Corpuscular Hemoglobin 31.1 pg (28.0-32.0); Mean Corpuscular Hgb Conc. 33.8 g/dL (32.0-36.0); Mean Corpuscular Volume 91.8 fL (80.0-100.0); Monocytes # (auto) 0.9 10 ^3/uL (0-1.3); Monocytes % (auto) 8.7 % (0.0-12.0); Neutrophils # (auto) 7.1 10 ^3/uL (1.6-8.6); Neutrophils % (auto) 66.1 % (37.0-80.0); Platelet Count (auto) 171 10^3/uL (140-450); Red Blood Cells 3.44 10^6/uL (4.0-5.20); Red Cell Distribution Width 13.7 % (11.8-14.3); White Blood Cell 10.8 10^3/uL (4.4-10.8)
[2024-12-07 06:05] LABS: Anion Gap 8 (5-15); Calcium 8.9 mg/dL (8.7-10.4); Carbon Dioxide 28 mmol/L (20-31); Chloride 105 mmol/L (98-107); Potassium 3.9 mmol/L (3.5-5.1); Sodium 141 mmol/L (136-145)
[2024-12-07 06:11] LABS: Blood Urea Nitrogen 22 mg/dL (9-23); Glucose 100 mg/dL (74-106)
[2024-12-07 09:00] VITALS: BP 98/30; PULSE 78; RESP 18; TEMP 97.6; O2SAT 91
[2024-12-07] MEDS ORDERED: MORPHINE SULFATE INJ 2 MG/ml SYRG IV PRN ×2 (09:15)
[2024-12-07] MEDS: HYDROcodone-ACET 5/325MG TAB PO PRN (09:26)
[2024-12-07] MEDS: DOCUSATE SOD 100 MG CAP PO SCH (09:26)
--- NOTE | 2024-12-07 10:09 | DVHPN2 ---
Reviewed: Care Plan, H&P, Labs, Medications, Previous Orders, Radiology Changes from previous H/P or p: No Changes Musculoskeletal: other (Right hip pain) Objective Vitals Vital Signs Date Time Temp Pulse Resp B/P (MAP) Pulse Ox O2 Delivery O2 Flow Rate FiO2 12/07/24 05:00 97.7 83 19 115/60 (78) 94 97.7 12/06/24 20:00 Nasal Cannula* 2 28 Intake/Output Intake and Output 12/07/24 07:00 Intake Total 2005 ml Output Total 1600 ml Balance 405 ml Intake Oral 1555 ml IV Total 450 ml Output Urine Total 1600 ml Medications Current Medications Medications Dose Ordered Sig/Holly Route Start Time Stop Time Status Last Admin Dose Admin Sodium Chloride 1,000 ml @ 70 mls/hr [id number] IV 12/05/24 06:15 12/06/24 23:47 70 MLS/HR Acetaminophen/ Hydrocodone Bitart 1 tab Q4HP PRN PO 12/05/24 06:15 12/07/24 09:26 1 TAB Ondansetron HCl 4 mg Q4HP PRN IV 12/05/24 06:15 12/06/24 23:58 4 MG Enoxaparin Sodium 40 mg DAILY SC 12/05/24 10:00 12/07/24 09:28 40 MG Acetaminophen 650 mg Q6HP PRN PO 12/05/24 06:15 Ceftriaxone Sodium 50 ml @ 100 mls/hr DAILY@09 IV 12/05/24 09:00 12/07/24 09:26 100 MLS/HR Docusate Sodium 100 mg BID PO 12/07/24 10:00 12/07/24 09:26 100 MG Morphine Sulfate 2 mg Q4HPRN PRN IV 12/07/24 09:15 Laboratory Results Laboratory Tests 12/07/24 04:27 Chemistry Test 12/07/24 04:27 Calcium Level 8.9 mg/dL (8.7-10.4) Labs and/or images reviewed: Labs reviewed by me, Image(s) reviewed by me Assessment/Plan Assessment/Plan Transferred from [facility] Acute right intertrochanteric fracture: Status post open reduction internal fixation of right hip intertrochanteric fracture, by Dr Florian on 12-05-24 History of pacemaker Osteoporosis Echocardiogram 55 % ejection fraction Physical therapy ordered Plan discussed with: Patient My Orders Orders - YOUNG,ALYCE M MD Procedure Category Date Status Time Basic Metabolic Panel LAB 12/08/24 Verified 06:00 Complete Blood Count LAB 12/08/24 Verified 06:00 Docusate Sodium PHA 12/07/24 In Process Capsule (Colace 10:00 Morphine Sulfate PHA 12/07/24 In Process Injection 09:15 Date of Service: Dec 07, 2024 Billing Provider: ALYCE YOUNG MD Common Visit Codes: [id number] INP/OBS CARE(HIGH) ALYCE YOUNG MD Dec 07, 2024 10:09
[2024-12-07 13:00] VITALS: BP 115/45; PULSE 82; RESP 20; TEMP 97.5; O2SAT 97
[2024-12-07 17:00] VITALS: BP 100/46; PULSE 79; RESP 18; TEMP 97.6; O2SAT 91
[2024-12-07 21:00] VITALS: BP 109/52; PULSE 82; RESP 18; TEMP 97.9; O2SAT 92
[2024-12-08 01:00] VITALS: BP 108/49; PULSE 76; RESP 18; TEMP 98; O2SAT 93
[2024-12-08 05:00] VITALS: BP 136/46; PULSE 73; RESP 18; TEMP 97.9; O2SAT 93
[2024-12-08 08:47] LABS: Anion Gap 9 (5-15); Basophils # (auto) 0 10 ^3/uL (0-0.2); Basophils % (auto) 0.2 % (0.0-2.0); Carbon Dioxide 24 mmol/L (20-31); Chloride 107 mmol/L (98-107); Eosinophils # (auto) 0.2 10 ^3/uL (0-0.8); Eosinophils % (auto) 1.4 % (0.0-7.0); Hematocrit 31.1 % (36.0-46.0); Hemoglobin 10.3 g/dL (12.2-16.2); Lymphocytes # (auto) 3.4 10 ^3/uL (0.4-5.4); Lymphocytes % (auto) 26.3 % (10.0-50.0); Mean Corpuscular Hemoglobin 31.1 pg (28.0-32.0); Mean Corpuscular Hgb Conc. 33.2 g/dL (32.0-36.0); Mean Corpuscular Volume 93.5 fL (80.0-100.0); Monocytes # (auto) 1.2 10 ^3/uL (0-1.3); Monocytes % (auto) 9.1 % (0.0-12.0); Neutrophils # (auto) 8.2 10 ^3/uL (1.6-8.6); Nucleated Red Blood Cells % 0.1 %; Platelet Count (auto) 190 10^3/uL (140-450); Potassium 4.2 mmol/L (3.5-5.1); Red Blood Cells 3.32 10^6/uL (4.0-5.20); Red Cell Distribution Width 13.8 % (11.8-14.3); Sodium 140 mmol/L (136-145); White Blood Cell 13.1 10^3/uL (4.4-10.8)
[2024-12-08 08:48] LABS: Calcium 9.1 mg/dL (8.7-10.4)
[2024-12-08 08:53] LABS: BUN/Creatinine Ratio 19.3 (10.0-20.0); Blood Urea Nitrogen 16 mg/dL (9-23); Glucose 81 mg/dL (74-106)
[2024-12-08 09:00] VITALS: BP 128/53; PULSE 80; RESP 18; TEMP 98.4; O2SAT 92
[2024-12-08 09:17] LABS: Platelet Estimate Adequate
[2024-12-08] MEDS ORDERED: HYDR-4902 PO (12:05)
--- NOTE | 2024-12-08 12:11 | DVHDS2 ---
Discharge Summary Date of Admission Dec 05, 2024 at 06:32 Date of Discharge: Dec 08, 2024 Admitting Diagnosis Right femur fracture Wounds: ORIF right femur fracture Labs/Diagnostic Data: Laboratory Results Test 12/08/24 07:30 12/06/24 05:05 12/05/24 05:28 White Blood Count 13.1 10^3/uL (4.4-10.8) Red Blood Count 3.32 10^6/uL (4.0-5.20) Hemoglobin 10.3 g/dL (12.2-16.2) Hematocrit 31.1 % (36.0-46.0) Mean Corpuscular Volume 93.5 fL (80.0-100.0) Mean Corpuscular Hemoglobin 31.1 pg (28.0-32.0) Mean Corpuscular Hemoglobin Concent 33.2 g/dL (32.0-36.0) Red Cell Distribution Width 13.8 % (11.8-14.3) Platelet Count 190 10^3/uL (140-450) Mean Platelet Volume 7.5 fL (6.9-10.8) Neutrophils (%) (Auto) 63.0 % (37.0-80.0) Lymphocytes (%) (Auto) 26.3 % (10.0-50.0) Monocytes (%) (Auto) 9.1 % (0.0-12.0) Eosinophils (%) (Auto) 1.4 % (0.0-7.0) Basophils (%) (Auto) 0.2 % (0.0-2.0) Neutrophils # (Auto) 8.2 10 ^3/uL (1.6-8.6) Lymphocytes # (Auto) 3.4 10 ^3/uL (0.4-5.4) Monocytes # (Auto) 1.2 10 ^3/uL (0-1.3) Eosinophils # (Auto) 0.2 10 ^3/uL (0-0.8) Basophils # (Auto) 0 10 ^3/uL (0-0.2) Nucleated Red Blood Cells 0.1 % Platelet Estimate Adequate Sodium Level 140 mmol/L (136-145) Potassium Level 4.2 mmol/L (3.5-5.1) Chloride Level 107 mmol/L (98-107) Carbon Dioxide Level 24 mmol/L (20-31) Anion Gap 9 (5-15) Blood Urea Nitrogen 16 mg/dL (9-23) Creatinine 0.83 mg/dL (0.550-1.02) Glomerular Filtration Rate Calc 69 mL/min (>90) BUN/Creatinine Ratio 19.3 (10.0-20.0) Serum Glucose 81 mg/dL (74-106) Calcium Level 9.1 mg/dL (8.7-10.4) Total Bilirubin 0.7 mg/dL (0.2-1.0) Aspartate Amino Transferase (AST) 28 U/L (13-40) Alanine Aminotransferase (ALT) 25 U/L (7-40) Alkaline Phosphatase 68 U/L (46-116) Total Protein 5.9 g/dL (5.7-8.2) Albumin 3.6 g/dL (3.2-4.8) Prothrombin Time 10.8 sec (9.3-11.8) Prothrombin Time INR 1.02 (0.9-1.15) Activated Partial Thromboplast Time 24.2 SEC (24.5-34.5) Other Laboratory Tests 12/08/24 07:30 Brief Hx & Hospital Course: 84 yr old female had a mechanical fall sustained right intertrochanteric fracture. Transferred from [facility] to [facility] underwent ORIF by Dr. Florian on 12/05/2024. Treated with the pain medications. Echocardiogram 55 percent ejection fraction cardiology cleared for surgery patient has a history of pacemaker and osteoporosis patient has received pain medications and physical therapy postop and is able to ambulate with help and requesting to be discharged home. Patient's sister came here to pick her up. Discharged home on [place] patient will receive of home health RN to be arranged by her primary Dr Dr. Nunez at [place] Consults/Reason for consult Orthopedic Dr Florian Operations or Procedures ORIF right femur fracture Condition at Discharge: Good Final Diagnosis/Problems List Acute right intertrochanteric fracture: Status post open reduction internal fixation of right hip intertrochanteric fracture, by Dr Florian on 12-05-24 History of pacemaker Osteoporosis Echocardiogram 55 % ejection fraction Discharge Disposition: Home with Health Services Discharge Instruct/Medications Diet: Cardiac 2g Na,low cholest Activity: See Comment Activity comment: Weight-bearing as tolerated right lower extremity Follow Up/Referral: Follow up with the primary Dr Follow up with the orthopedic . Physical therapy for four weeks Medications: [place] Transmitted to [facility] Discharge Statement: "Patient was advised to return to the ER or call 911 if any headaches, dizziness, shortness of breath, chest pain, abdominal pain, bleeding, fevers, or worsening of medical condition. Patient was counseled about treatment plan, medications, possible side effects, patientverbalized understanding. All questions were answered to the best of my ability. This discharge took greater then 30 minutes in planning, reviewing documentation, counseling the patient, and discussing with other team members." ASSESSMENT ASSESSMENT Hospital Course Improved Assessment Acute right intertrochanteric fracture: Status post open reduction internal fixation of right hip intertrochanteric fracture, by Dr Florian on 12-05-24 History of pacemaker Osteoporosis Echocardiogram 55 % ejection fraction Date of Service: Dec 08, 2024 Billing Provider: ALYCE YOUNG MD Common Visit Codes: 70993-BFS/OBS DISCH DAY >30min ALYCE YOUNG MD Dec 08, 2024 12:11
[2024-12-08 12:45] VITALS: BP 110/56; PULSE 75; RESP 17; TEMP 97.6; O2SAT 95
[2024-12-08] MEDS: HYDROcodone-ACET 5/325MG TAB PO ONE (15:08)
== END 2024-12-08 16:00 | disposition home health service (06) | DRG 481 ==
LOC: EDBD 03:51 → ER 03:51 → OVERFLOW 06:32 → WEST WING 10:04
PROVIDERS: ADMIT Family Medicine; ATTEND Family Medicine
PROC: 0QS604Z Reposition Right Upper Femur with Internal Fixation Device, Open Approach (ICD-10-PCS; principal; 2024-12-05 13:42)
DX: S72.141A Displaced intertrochanteric fracture of right femur, initial encounter for closed fracture (principal); R71.0 Precipitous drop in hematocrit; I10 Essential (primary) hypertension; D72.829 Elevated white blood cell count, unspecified; R09.89 Other specified symptoms and signs involving the circulatory and respiratory systems; M81.0 Age-related osteoporosis without current pathological fracture; R00.1 Bradycardia, unspecified; W18.39XA Other fall on same level, initial encounter; Z98.41 Cataract extraction status, right eye; Z95.0 Presence of cardiac pacemaker; Z88.5 Allergy status to narcotic agent; Z79.899 Other long term (current) drug therapy; Y93.89 Activity, other specified; Y92.89 Other specified places as the place of occurrence of the external cause; Y99.8 Other external cause status; Z82.49 Family history of ischemic heart disease and other diseases of the circulatory system
CPT/HCPCS: 36415; 71045; 73502; 73700; 76000; 80048; 80053; 85025; 85610; 85730; 93005; 93306; 97110; 97116; 97163; A4565; G0378; J0131; J0171; J0690; J1100; J1885; J2003; J2405; J2704